=== PATIENT | male | born 1970 | race Hispanic/Latino ===

== ENCOUNTER 2019-02-11 13:59 | Emergency (ER) | payer SELFPAY ==
[~2019-02-11] VITALS: Ht 177.8 cm; Wt 88.5 kg
--- NOTE | 2019-02-11 16:00 | Diagnostic Imaging Report ---
EXAMINATION: CHEST 2 VIEWS INDICATION: Arm numbness. ^LT ARM PAIN ^[id number] ^1550 COMPARISON: None FINDINGS: TUBES and LINES: None. LUNGS: Lungs are well inflated. Lungs are clear. There is no evidence of pneumonia or pulmonary edema. PLEURA: No pleural effusion or pneumothorax. HEART AND MEDIASTINUM: The cardiomediastinal silhouette is unremarkable. BONES AND SOFT TISSUES: No acute osseous lesion. Soft tissues are unremarkable. UPPER ABDOMEN: No free air under the diaphragm. IMPRESSION: No acute thoracic abnormality. Signed by: Dr. Karri Woody M.D. on 02/11/2019 3:57 PM
--- NOTE | 2019-02-11 16:52 | NUR ---
DR. DESAI ASSESSING PT AT THIS TIME.
[2019-02-11] MEDS ORDERED: LOSARTAN POTASSIUM 100 MG TAB PO ONE (17:00)
[2019-02-11] MEDS ORDERED: CLONIDINE HCL 0.1 MG TAB PO ONE (17:00)
[2019-02-11] MEDS ORDERED: HYDROCHLOROTHIAZIDE 25 MG TAB PO ONE (17:00)
--- NOTE | 2019-02-11 17:10 | NUR ---
PATIENT TO ROOM 7
== END 2019-02-11 20:08 | disposition home or self-care (01) ==
LOC: ER 13:59
DX: I10 Essential (primary) hypertension (principal); Z87.891 Personal history of nicotine dependence
CPT/HCPCS: 36415; 71046; 84484; 93005; 99284